=== PATIENT | female | born 1955 | race Caucasian/White ===

== ENCOUNTER → 2017-11-18 | Outpatient (CLI) | payer OTHER | LOC: M.RAD 11:33 | DX: M85.88 Other specified disorders of bone density and structure, other site (principal); M25.532 Pain in left wrist ==

== ENCOUNTER → 2019-06-17 | Outpatient (CLI) | payer OTHER | LOC: M.RAD 16:21 | DX: M47.814 Spondylosis without myelopathy or radiculopathy, thoracic region (principal); M25.78 Osteophyte, vertebrae; M48.04 Spinal stenosis, thoracic region ==

== ENCOUNTER → 2021-02-13 | Outpatient (CLI) | payer MEDICARE, OTHER | LOC: M.RAD 09:48 | PROVIDERS: ATTEND Nurse Practitioner | DX: S29.011A Strain of muscle and tendon of front wall of thorax, initial encounter (principal); R19.5 Other fecal abnormalities; M47.9 Spondylosis, unspecified; X58.XXXA Exposure to other specified factors, initial encounter; Y93.89 Activity, other specified; Y92.89 Other specified places as the place of occurrence of the external cause; Y99.8 Other external cause status ==